=== PATIENT | male | born 1980 | race Two or more races ===

== ENCOUNTER 2020-08-11 11:46 | Emergency (ER) | payer SELFPAY ==
[~2020-08-11] VITALS: Ht 188 cm; Wt 94.0 kg
--- NOTE | 2020-08-11 12:14 | PHYS DOC ---
General Adult EDM: Chief Complaint: PENIS PROBLEM HPI: HPI: Patient is a 40 year old male who presents with 4 days of tip of penis tenderness, pain with urination, swelling, white discharge. He denies any sexually transmitted disease concerns. He is uncircumcised. Patient is able to retract foreskin and the foreskin retract back over penis although there is swelling. Patient states he would like a circumcision. Patients only history is Diabetes. He rates his pain at a 6/10. Denies abdominal pain, nausea, vomiting, fever, blood in urine, back pain, urinary symptoms beside burning with urination. Patient states he takes no medicine for his diabetes and does not check it. Patient glucose was checked in the ED and it reads as HIGH. Review of Systems: Review of Systems: Constitutional: Denies fever or chills. [] Eyes: Denies change in visual acuity. [] HENT: Denies nasal congestion or sore throat. [] Respiratory: Denies cough or shortness of breath. [] Cardiovascular: Denies chest pain or edema. [] GI: Denies abdominal pain, nausea, vomiting, bloody stools or diarrhea. [] : Denies dysuria. +Burning with urination[] Musculoskeletal: Denies back pain or joint pain. [] Integument: Denies rash. +Penile pain and swelling. [] Neurologic: Denies headache, focal weakness or sensory changes. [] Endocrine: Denies polyuria or polydipsia. [] Lymphatic: Denies swollen glands. [] Psychiatric: Denies depression or anxiety. [] Heart Score: Risk Factors: Risk Factors: DM, Current or recent (<one month) smoker, HTN, HLP, family history of CAD, obesity. Risk Scores: Score 0 - 3: 2.5% MACE over next 6 weeks - Discharge Home Score 4 - 6: 20.3% MACE over next 6 weeks - Admit for Clinical Observation Score 7 - 10: 72.7% MACE over next 6 weeks - Early Invasive Strategies Physical Exam: PE: Constitutional: Well developed, well nourished, no acute distress, non-toxic appearance. [] HENT: Normocephalic, atraumatic, bilateral external ears normal, oropharynx moist, no oral exudates, nose normal. [] Eyes: PERRLA, EOMI, conjunctiva normal, no discharge. [] Neck: Normal range of motion, no tenderness, supple, no stridor. [] Cardiovascular:Heart rate regular rhythm, no murmur [] Lungs & Thorax: Bilateral breath sounds clear to auscultation [] Abdomen: Bowel sounds normal, soft, no tenderness, no masses, no pulsatile masses. [] Skin: Warm, dry, no erythema, no rash. Penile swelling, white discharge, uncircumcised, tender. [] Back: No tenderness, no CVA tenderness. [] Extremities: No tenderness, no cyanosis, no clubbing, ROM intact, no edema. [] Neurologic: Alert and oriented X 3, normal motor function, normal sensory function, no focal deficits noted. [] Psychologic: Affect normal, judgement normal, mood normal. [] EKG: EKG: [] Radiology/Procedures: Radiology/Procedures: [] Course & Med Decision Making: Course & Med Decision Making Pertinent Labs and Imaging studies reviewed. (See chart for details) See HPI. Alert and oriented x4. Speaks in full complete sentences. Ambulatory with a steady gait. Skin pink warm and dry. Abdomen is soft and nontender. LFTs are elevated but patient is without abdominal or GI complaints and will need this followed with doctor. His glucose is 581 and he is given 10u Insulin and 2 Liters of NS. There is no anion gap and acetone is negative. He is given Rocephin for a UTI in the ED. I have sent off his urine for a chlamydia and gonorrhea culture. After fluids and insulin patient's glucose came down to 294. He will be treated for Balantitis. I am not going to start the patient on Metformin due to his very elevated LFTs. He needs to get a primary care provider soon as possible. Dr. Garduno stated to not start him on any diabetes medication. [] Vel Disclaimer: Vel Disclaimer: This electronic medical record was generated, in whole or in part, using a voice recognition dictation system. Departure Departure Impression: Primary Impression: Balanitis Additional Impressions: UTI (urinary tract infection) Qualified Codes: N39.0 - Urinary tract infection, site not specified Hyperglycemia Disposition: 01 DC HOME SELF CARE/HOMELESS Condition: STABLE Patient Instructions: Balanitis and Foreskin Hygiene, Diabetes Meal Planning Guide, Hyperglycemia Additional Instructions: Get a primary care provider soon as possible. Use medication as prescribed. Check your blood sugars regularly. If your foreskin gets stuck down over the penis and will not come back up you need to return to the emergency room emergently. Scripts Cephalexin (KEFLEX) 500 Mg Capsule 1 CAP PO BID for 7 Days, #14 CAP 0 Refills Prov: FARTUN WANG APRN 08/11/20 Triamcinolone Acetonide (TRIAMCINOLONE ACETONIDE 0.1% CREAM) 15 Gm Cream..g. 1 ARNULFO TP BID for 14 Days, #1 TUBE Prov: FARTUN WANG APRN 08/11/20 FARTUN WANG APRN Aug 11, 2020 12:14
[2020-08-11] MEDS ORDERED: IV NORMAL SALINE 1000ML BAG 1,000 ML IV SCH (12:15)
[2020-08-11] MEDS ORDERED: IV NORMAL SALINE 1000ML BAG 1,000 ML IV ONE (12:15)
[2020-08-11 12:40] LABS: BILIRUBIN,URINE NEGATIVE (NEG); CLARITY,URINE CLEAR; COLOR,URINE YELLOW; NITRITE,URINE NEGATIVE (NEG); PROTEIN,URINE NEGATIVE (NEG-TRACE); UROBILINOGEN,URINE 0.2 mg/dL (0.2 mg/dL)
[2020-08-11 12:41] LABS: BASO % 1 % (0-3); EOS # 0.1 x10^3/uL (0.0-0.7); EOS % 1 % (0-3); HEMATOCRIT 45.3 % (39.0-53.0); HEMOGLOBIN 15.3 g/dL (13.0-17.5); LYMPH # 2.1 x10^3/uL (1.0-4.8); LYMPH % 39 % (24-48); MEAN CORPUSCULAR HEMOGLOBIN 32 pg (25-35); MEAN CORPUSCULAR HGB CONC 34 g/dL (31-37); MEAN CORPUSCULAR VOLUME 95 fL (79-100); MONO # 0.5 x10^3/uL (0.0-1.1); MONO % 8 % (0-9); NEUT # 2.8 x10^3/uL (1.8-7.7); NEUT % 51 % (31-73); PLATELET COUNT 137 x10^3/uL (140-400); RED BLOOD COUNT 4.76 x10^6/uL (4.30-5.70); RED CELL DISTRIBUTION WIDTH 13.4 % (11.5-14.5); WHITE BLOOD COUNT 5.4 x10^3/uL (4.0-11.0)
[2020-08-11 13:00] LABS: BACTERIA,URINE FEW /HPF (0-FEW)
[2020-08-11 13:16] LABS: ALBUMIN 3.6 g/dL (3.4-5.0); ALBUMIN/GLOBULIN RATIO 0.8 (1.0-1.7); CALCIUM 9.9 mg/dL (8.5-10.1); GFR 82.3; POTASSIUM 4.5 mmol/L (3.5-5.1); TOTAL BILIRUBIN 0.8 mg/dL (0.2-1.0); TOTAL PROTEIN 8.2 g/dL (6.4-8.2)
[2020-08-11] MEDS ORDERED: INSULIN REGULAR 100 UNIT/ML 3ML VIAL. IV ONE (13:30)
[2020-08-11 13:32] VITALS: BP 114/70
[2020-08-11] MEDS ORDERED: cefTRIAXone IV Push 1 GM VIAL. IVP ONE (13:45)
[2020-08-11 13:48] LABS: BARBITURATES NEG (NEG); BENZODIAZEPINES NEG (NEG); CANNABINOIDS NEG (NEG); COCAINE NEG (NEG); METHADONE NEG (NEG); OPIATES NEG (NEG); PHENCYCLIDINE NEG (NEG)
[2020-08-11 13:54] LABS: AMPHETAMINE/METHAMPHETAMINE NEG (NEG)
[2020-08-11] MEDS ORDERED: CEPH-264 PO (15:15)
[2020-08-11] MEDS ORDERED: TRIA15CR3 TP (15:15)
== END 2020-08-11 15:30 | disposition home or self-care (01) ==
LOC: ER 11:46
DX: N48.1 Balanitis (principal); N39.0 Urinary tract infection, site not specified; E11.65 Type 2 diabetes mellitus with hyperglycemia; R79.89 Other specified abnormal findings of blood chemistry
CPT/HCPCS: 36415; 80053; 80307; 81001; 82010; 82962; 83690; 85025; 87077; 87086; 87491; 87591; 96361; 96374; 96375; 99284; G0480; J0696; J1815; J7030